=== PATIENT | male | born 1955 | race Two or more races ===

== ENCOUNTER 2024-07-11 17:09 | Inpatient (IN) | payer MEDICARE, OTHER ==
[~2024-07-11] VITALS: Ht 180.3 cm; Wt 88.0 kg
--- NOTE | 2024-07-11 19:43 | NUR ---
GPS RN ADMITTING NOTE ADMITTED A 68-Y/O, MALE, FROM [facility]. ADMITTED ON A 5150 HOLD FOR GD. PER HOLD, PT BELIEVES HE IS IN GOOD HEALTH, HE DOES NOT NEED MEDS, PT WITH POOR INSIGHT. PT UNABLE TO PROVIDE BASIC NEEDS, MEDICAL AND MENTAL WELL BEING. UPON FACE TO FACE EVALUATION, PATIENT IS NOTED BEING UNKEMPT, DISHEVELED, UNMOTIVATED TO SELF CARE. PT IS ALERT AND ORIENTED X3, DENIES SI/HI/AVH AT THIS TIME. SKIN ASSESSMENT NOTED WITH THICK, DISCOLORED TOENAILS AND MULTIPLE SCRATCHES ON TONI. LOWER EXT. WOUND CONSULT TRIGGERED. PT HAS NO BELONGINGS UPON ADMISSION. PATIENT ADVISED OF HIS HOLD AND PATIENT'S RIGHTS BOOKLET GIVEN. PT IS UNDER THE PSYCHIATRIC CARE OF DR. BARNETT. PT WAS SEEN AND EXAMINED BY HOSPITALIST RAFAEL DOWNS. SAFETY PRECAUTIONS IN PLACE. WILL CONTINUE TO MONITOR PATIENT Q15 MINUTES FOR SAFETY AND BEHAVIOR.
[2024-07-11] MEDS ORDERED: DOCU100C36 PO (20:28)
[2024-07-11] MEDS ORDERED: ZOLPIDEM TARTRATE 5 MG TABLET PO PRN ×2 (20:30)
[2024-07-11] MEDS ORDERED: ACETAMINOPHEN 325 MG TABLET PO PRN (20:30)
[2024-07-11] MEDS ORDERED: MAG HYDROX/AL HYDROX/SIMETH 30 ML UDC PO PRN (20:30)
[2024-07-11] MEDS ORDERED: INSU100V7 SQ (20:30)
[2024-07-11] MEDS ORDERED: MAGNESIUM HYDROXIDE 30 ML UDC PO PRN (20:30)
[2024-07-11] MEDS ORDERED: INSU100V39 SQ (20:33)
[2024-07-11] MEDS ORDERED: TAMS-12 PO (20:34)
[2024-07-11] MEDS ORDERED: OLAN5TAB3 PO (20:34)
[2024-07-11] MEDS ORDERED: ASPI-1420 PO (20:36)
[2024-07-11] MEDS ORDERED: EZET10TA16 PO (20:37)
[2024-07-11] MEDS ORDERED: ATOR40TA PO (20:37)
[2024-07-11] MEDS: BLOOD SUGAR DIAGNOSTIC 1 EACH STRIP IN ONE (20:44)
[2024-07-11] MEDS: LORAZEPAM 1 MG TABLET PO PRN (20:44)
[2024-07-11 21:00] VITALS: BP 153/84; TEMP 98; O2SAT 96
[2024-07-11] MEDS ORDERED: DEXTROSE 50%-WATER 50 ML DISP.SYRIN IV PRN (21:00)
--- NOTE | 2024-07-11 21:00 | NUR ---
GPS RN NOTE PATIENT C/O FEELING ANXIOUS. ATIVAN 1MG PO GIVEN ORDERED. POST ADMINISTRATION OF ATIVAN. PT IS ASLEEP AT THIS TIME.
[2024-07-11] MEDS: EZETIMIBE 10 MG TABLET PO SCH (21:35)
[2024-07-11] MEDS: BLOOD SUGAR DIAGNOSTIC 1 EACH STRIP IN SCH (21:38)
[2024-07-11] MEDS: INSULIN REGULAR, HUMAN 100 UNIT/ML 3 ML VIAL SQ PRN (21:44)
[2024-07-11] MEDS ORDERED: INSULIN LISPRO 100 UNIT SQ SCH (22:00)
[2024-07-12] MEDS: INSULIN GLARGINE, 100 UNIT/ML CARTRIDGE SQ SCH (00:08)
[2024-07-12 08:02] LABS: BASOPHILS % (AUTO) 0.5 % (0.0-2.0); EOSINOPHILS # (AUTO) 0.2 K/uL (0.0-0.7); EOSINOPHILS % (AUTO) 3.2 % (0.0-6.0); HEMATOCRIT 36 % (39-51); HEMOGLOBIN 11.9 g/dL (13.5-17.5); LYMPHOCYTES # (AUTO) 2.1 K/uL (0.8-4.8); LYMPHOCYTES % (AUTO) 33.8 % (20.0-44.0); MEAN CORPUSCULAR HEMOGLOBIN 27 PG (26.0-33.0); MEAN CORPUSCULAR HGB CONC 33 g/dl (31.0-36.0); MEAN CORPUSCULAR VOLUME 82 fL (80-96); MONOCYTES # (AUTO) 0.5 K/uL (0.1-1.30); MONOCYTES % (AUTO) 7.2 % (2.0-12.0); NEUTROPHILS # (AUTO) 3.5 K/uL (1.8-8.9); NEUTROPHILS % (AUTO) 55.3 % (43.0-81.0); PLATELET COUNT (AUTO) 232 K/uL (150-450); RED BLOOD CELL COUNT(AUTO) 4.33 MIL/uL (4.5-6.0); RED CELL DISTRIBUTION WIDTH 16.4 % (11.5-15.0); WHITE BLOOD COUNT (AUTO) 6.3 K/uL (4.3-11.0)
[2024-07-12 08:25] LABS: CALCIUM, SERUM 9.3 mg/dL (8.5-10.1); CREATININE 0.7 mg/dL (0.6-1.3); POTASSIUM 3.7 mmol/L (3.5-5.1)
[2024-07-12 08:29] VITALS: BP 151/91; TEMP 97.9; O2SAT 96
[2024-07-12] MEDS: DOCUSATE SODIUM 100 MG CAPSULE PO SCH (09:33)
[2024-07-12] MEDS: ATORVASTATIN 40 MG TABLET PO SCH (09:33)
[2024-07-12] MEDS: TAMSULOSIN 0.4 MG CAP.SR.24H PO SCH (09:33)
[2024-07-12] MEDS: ASPIRIN EC 81 MG TABLET.DR PO SCH (09:34)
[2024-07-12] MEDS: OLANZAPINE 2.5 MG TABLET PO SCH (16:38)
[2024-07-12 17:03] VITALS: BP 132/59; TEMP 98.7; O2SAT 98
[2024-07-13 08:00] VITALS: BP 125/81; TEMP 97.8; O2SAT 96
--- NOTE | 2024-07-13 09:55 | NUR ---
REGINE Initial Discharge Note: Pt currently resides at [address] [place] [address]; ([phone]). REGINE will contact pt's person to notify ([phone]) to discuss treatment/discharge plan. REGINE will work work with the MD, family, and treatment team to help coordinate appropriate discharge.
--- NOTE | 2024-07-13 09:56 | NUR ---
REGINE Clinical Note: Pt placed on a 5150 hold for GD. Per hold, pt has no insight into his mental illness. Pt stated that he does not need medications. Pt currently resides at [address] [place] [address]; ([phone]). REGINE will contact pt's person to notify ([phone]) to discuss treatment/discharge plan.
--- NOTE | 2024-07-13 13:39 | NUR ---
REGINE Family Contact: REGINE contacted pt's sister Jina ([phone]) and discussed pt's treatment/discharge plan. Sister stated that she is the DPOA and she will send those documents. She stated that pt is unable to take care of himself at home and will need placement. She would want him to go to nursing facility. REGINE gave options of nursing homes in: [place] [facility], [facility], and [facility]. She would want this technical report writer to send clinicals to [facility]. She stated that his apartment is invested with cockroaches. REGINE will file APS through [facility].
--- NOTE | 2024-07-13 13:55 | NUR ---
APS: REGINE filed for APS through [facility] for wellness check Intake #[id number]. REGINE placed a copy in the chart.
[2024-07-13 16:07] VITALS: BP 115/60; TEMP 97.8; O2SAT 100
[2024-07-13 20:48] VITALS: BP 153/81; TEMP 97.8; O2SAT 97
[2024-07-14 08:00] VITALS: BP 152/95; TEMP 97.8; O2SAT 96
[2024-07-14] MEDS: OLANZAPINE 2.5 MG TABLET PO SCH (10:00)
--- NOTE | 2024-07-14 10:21 | NUR ---
MEDICATION NOTE ZYPREXA 2.5MG GIVEN THIS AM. FROM PREVIOUS ORDER.
--- NOTE | 2024-07-14 11:30 | NUR ---
REGINE Note: Dr. Fox and SW spoke with pt regarding his placement and home environment, stated that sister Jina ([phone]) stated that his home is infested with roaches. He was agreeable of placement.
--- NOTE | 2024-07-14 11:35 | NUR ---
RN-NOTES PATIENT HAD A 14 DAY HOLD HEARING TODAY AND WAS UPHELD FOR GD.
[2024-07-14 16:00] VITALS: BP 142/78; TEMP 97.8; O2SAT 100
--- NOTE | 2024-07-14 19:30 | NUR ---
RN OPENING NOTE RECEIVED PT IN BED, SLEEPING. PT A/O X3, ABLE TO MAKE NEEDS KNOWN. ON ROOM AIR, TOLERATING WELL, WITH RESPIRATIONS EVEN AND UNLABORED, NO SOB. DENIES PAIN OR DISCOMFORT AT THIS TIME. DENIES S/I, H/I AT THIS TIME. SAFETY MEASURES IMPLEMENTED. WILL CONTINUE TO MONITOR PT FOR SAFETY, AND BEHAVIORAL CHANGES.
--- NOTE | 2024-07-14 20:00 | NUR ---
RN NOTE PT'S BP: 170/87, P: 64.
[2024-07-14] MEDS: OLANZAPINE 5 MG TABLET PO SCH (21:51)
--- NOTE | 2024-07-14 22:00 | NUR ---
RN NOTE PT'S BP RETAKEN, BP: 150/74, P: 69.
--- NOTE | 2024-07-15 06:45 | NUR ---
RN CLOSING NOTE LEFT PT IN BED, SLEEPING. PT A/O X2, ABLE TO MAKE NEEDS KNOWN. ON ROOM AIR, TOLERATING WELL, WITH RESPIRATIONS EVEN AND UNLABORED, NO SOB NOTED. DENIES PAIN OR DISCOMFORT AT THIS TIME. SAFETY MEASURES IMPLEMENTED. ALL NEEDS ATTENDED, ALL DUE MEDS GIVEN. WILL ENDORSE PT TO AM SHIFT FOR CONTINUITY OF CARE.
--- NOTE | 2024-07-15 08:09 | NUR ---
REGINE Note: REGINE received pt's wish list from sister Jina ([phone]) and this radio news writer placed it in the chart.
[2024-07-15 09:22] VITALS: BP 151/83; TEMP 97.7; O2SAT 94
--- NOTE | 2024-07-15 09:36 | NUR ---
WOUND CARE CONSULT: PT PRESENTS WITH VERY LONG CURLING TOENAILS AND EXCORIATIONS TO LEFT LOWER LEG, PRESENT ON ADMISSION. DR VITAL CALLED FOR DPM CONSULT. IN AGREEMENT WITH PLAN OF CARE.
--- NOTE | 2024-07-15 10:12 | NUR ---
DPOA: Sister Jina ([phone]) sent DPOA document she is the financial DPOA. SW placed it in the chart.
--- NOTE | 2024-07-15 11:39 | NUR ---
Referral: ERGINE sent clinicals to Karley from [facility] ([phone]) for placement. REGINE sent H & P, progress notes, and medication list.
--- NOTE | 2024-07-15 13:00 | NUR ---
NURSE NOTE: BS AT 235. 4 UNITS OF INSULIN ADMIN TO R ARM ORDERED. WILL CONT TO MONITOR.
--- NOTE | 2024-07-15 13:06 | NUR ---
SNF Contact: REGINE received a call from Karley from [facility] ([phone]) who stated pt is accepted.
--- NOTE | 2024-07-15 15:39 | NUR ---
SNF Referral: Per sister Jina's request, REGINE sent clinicals to [facility] ([phone]) for placement. SW sent clinicals to H & P, progress notes, and medications list.
[2024-07-15 16:00] VITALS: BP_SYST 114; BP_SYST 163; BP_DIAS 66; BP_DIAS 93; TEMP 98; TEMP 98.2; O2SAT 98
[2024-07-15 20:00] VITALS: BP 175/87; TEMP 98.1; O2SAT 98
[2024-07-15] MEDS: CLONIDINE HCL 0.1 MG TABLET PO PRN (21:16)
--- NOTE | 2024-07-15 21:16 | NUR ---
ELEVATED BP SBP 175 Patient denies headache, no c/o dizziness. PRN Clonidine given, will reassess BP.
--- NOTE | 2024-07-15 21:28 | NUR ---
ACCU CHECK FSBG 183mg/dl Given insulin per dose parameters, co-signed by JOANIE Sanders.
[2024-07-16 05:31] VITALS: BP 104/86; O2SAT 97
--- NOTE | 2024-07-16 06:18 | NUR ---
END OF SHIFT REPORT Patient with adequate sleep, cooperative. Compliant with medication, BP improved with Clonidine, Current this morning BP 104/86. Ambulatory, standby assist. Good appetite. Cont on safety protocol. Cont on GPS hospitalization as planned. Will endorse to oncoming RN.
[2024-07-16 08:21] VITALS: BP 190/131; TEMP 98.9; O2SAT 100
[2024-07-16 09:18] VITALS: BP 151/83
[2024-07-16] MEDS: NIFEdipine XL (30MG) 30 MG TAB PO SCH (10:37)
[2024-07-16 16:18] VITALS: BP 124/77; TEMP 97.8; O2SAT 95
[2024-07-16] MEDS: LORAZEPAM 1 MG TABLET PO PRN (16:24)
--- NOTE | 2024-07-16 16:27 | NUR ---
RN-NOTES NOTED PATIENT MUMBLING AND TALKING TO SELF WITH LOUD VOICE.. REDIRECTED AND ATIVAN 1MG P.O GIVEN PRN ORDER. WILL CONT. MONITORING FOR SAFETY AND BEHAVIOR.
--- NOTE | 2024-07-16 17:30 | NUR ---
RN-NOTES PATIENT EATING DINNER IN THE DAY ROOM CALM,NO ACUTE DISTRESS NOTED.
--- NOTE | 2024-07-16 18:49 | NUR ---
RN-NOTES PATIENT IS VISIBLE IN THE UNIT A/O X2 GUARDED,NOTED WITH EPISODE OF TALKING ,MUMBLING TO SELF AND SITTING ON THE FLOOR.REDIRECTED PATIENT. COMPLIANT WITH MEDICATIONS. ENCOURAGED TO PARTICIPATES IN THE GROUP ACTIVITY, PATIENT ATTENDED GROUP NO PARTICIPATIONS.AMBULATORY STEADY GAIT. ALL NEEDS ATTENDED AND ANTICIPATED. WILL ENDORSE TO THE INCOMING NURSE FOR CONTINUITY OF CARE.
[2024-07-16 20:00] VITALS: BP 127/83; TEMP 97.3; O2SAT 98
--- NOTE | 2024-07-17 06:34 | NUR ---
RN NOTES: PT. RESTING IN BED , 9 HOURS OF SLEEP, EASILY AGITATED, PARANOID DISORGNIZED NEEDS FREQUENTLY REDIRECTIONS, REDIRECTABLE , ALL NEEDS ATTENDED AND ANTICIPATED,NO ACUTE DISTRESS NOTED , WILL CONTINUTY WITH CARE .
[2024-07-17 08:00] VITALS: BP 126/77; TEMP 98; O2SAT 98
--- NOTE | 2024-07-17 13:51 | NUR ---
SNF Contact: SW spoke with intake from [facility] ([phone]) and denied pt due to not being able to care for him at the facility.
--- NOTE | 2024-07-17 13:52 | NUR ---
DPOA: REGINE contacted Sister Jina ([phone]) and stated that pt accepted at [facility].
[2024-07-17 16:00] VITALS: BP 112/67; TEMP 97.5; O2SAT 96
[2024-07-18 08:00] VITALS: BP 128/83; TEMP 97.9; O2SAT 100
[2024-07-18 16:00] VITALS: BP 123/80; TEMP 98; O2SAT 100
[2024-07-18 20:51] VITALS: BP 115/63; TEMP 98.2; O2SAT 97
--- NOTE | 2024-07-18 21:18 | NUR ---
RN NOTES:PT. BLOOD SUGAR IS 140 MG/DL ,PT. RFUSED TO TAKE INSULLIN REGULAR 2 UNITS OF CONVERGE , PER PT. STATES MY BS IS 140 ,BUT PT. AGREE TO TAKE LANTUS 8 UNITS. WILL CONTINUE WITH CARE.
--- NOTE | 2024-07-19 06:16 | NUR ---
RN NOTES: PT. RESTING IN BED , 8 HOURS OF SLEEP, EASILY AGITATED, PARANOID DISORGNIZED NEEDS FREQUENTLY REDIRECTIONS, REDIRECTABLE , ALL NEEDS ATTENDED AND ANTICIPATED,NO ACUTE DISTRESS NOTED , WILL CONTINUTY WITH CARE .
[2024-07-19 08:00] VITALS: BP 147/84; TEMP 97.5; O2SAT 97
[2024-07-19 16:00] VITALS: BP 135/75; TEMP 98; O2SAT 98
[2024-07-19 20:22] VITALS: BP 142/78; TEMP 98; O2SAT 98
[2024-07-20 08:00] VITALS: BP 142/79; TEMP 98.3; O2SAT 98
[2024-07-20 12:00] VITALS: TEMP 98.3
[2024-07-20 16:00] VITALS: BP 131/78; TEMP 98.6; O2SAT 98
[2024-07-20 20:38] VITALS: BP 134/79; TEMP 98.4; O2SAT 96
[2024-07-21 08:00] VITALS: BP 149/79; TEMP 97.8; O2SAT 99
[2024-07-21] MEDS: BENZTROPINE MESYLATE (1 MG) 1 MG TABLET PO SCH (10:38)
--- NOTE | 2024-07-21 10:41 | NUR ---
pt. up to nurse"s station reporting twitching of his head just started,notified dr. [email or web address].[email or web address] started.
--- NOTE | 2024-07-21 15:30 | NUR ---
resting in bed twitching seems to be better.
[2024-07-21 16:00] VITALS: BP 134/76; TEMP 97.8; O2SAT 98
--- NOTE | 2024-07-21 19:38 | NUR ---
RN OPENING NOTE RECEIVED PATIENT AWAKE SITTING ON BED. ON ROOM AIR, TOLERATING WELL, DENIES PAIN OR DISCOMFORT AT THIS TIME. DENIES S/I, H/I AT THIS TIME. SAFETY MEASURES IMPLEMENTED. WILL CONTINUE TO MONITOR PT FOR SAFETY, AND BEHAVIORAL CHANGES.
[2024-07-21 20:15] VITALS: BP 125/79; TEMP 97.8; O2SAT 99
[2024-07-22 08:00] VITALS: BP 157/106; TEMP 97; O2SAT 96
--- NOTE | 2024-07-22 08:54 | NUR ---
REGINE EARLY DISCHARGE ENTRY 07/23/2024: Patient will be discharged to [facility] located at [address] [place] [id number]; ([phone]) via ambulance. Karley martin from [facility] ([phone]) accepted pt and is welcoming pt today. Pts Sister Jina STREET ([phone] is aware and agreeable. Pt appears to be alert and oriented x1. Pt denies visual/auditory hallucinations. Pt denies denies suicidal or homicidal ideation. Patient will continue to follow-up with (Psychiatrist) Dr. Martinez [address] [address] [facility] [address], [place] [address]; ([phone]) and (Technical Internship) Dr. Kim [address] [facility] [address], [place] [address]; ([phone]).
[2024-07-22 16:00] VITALS: BP 120/82; TEMP 98; O2SAT 99
[2024-07-22 20:00] VITALS: BP 124/90; TEMP 98.1; O2SAT 99
[2024-07-23 08:00] VITALS: BP 100/65; TEMP 98.6; O2SAT 98
[2024-07-23 08:16] VITALS: BP 100/67
--- NOTE | 2024-07-23 09:57 | NUR ---
TIFFANIE RECEIVED T.O ORDER FROM DR. BARNETT TO DISCONTINUE HOLD, DISCHARGE PATIENT AND TO CONTINUE ALL MEDICATIONS INCLUDING PRN'S. NOTED AND CARRIED OUT.
--- NOTE | 2024-07-23 13:10 | NUR ---
RN-DISCHARGE NOTES PATIENT WAS DISCHARGE TO [facility]. REPORT WAS GIVEN TO [facility] WELDING MACHINE OPERATOR G[employer] ARC. BARBARA ARMENTA MEDICALLY CLEARED PATIENT FOR DISCHARGE. PATIENT LEFT THE UNIT AWAKE A/O X1-2 CALM,NO ACUTE DISTRESS NOTED. PATIENT REFUSED SKIN ASSESSMENT PRIOR TO DISCHARGE. PATIENT STATED" I HAVE NO PROBLEM WITH MY SKIN, IT'S FINE".PATIENT DID NOT VERBALIZE SI/HI,DENIES VISUAL/AUDITORY HALLUCINATIONS DURING FACE TO FACE INTERVIEW. PATIENT WAS TREATING AND PUMPING SUPERVISOR BY AMBULANCE VIA GURNEY WITH TWO STAFF ASSIST. ALL BELONGINGS WAS GIVEN BACK TO THE PATIENT.
== END 2024-07-23 13:10 | DRG 885 ==
LOC: GPS 19:37
PROVIDERS: ADMIT Psychiatry & Neurology Psychiatry; ATTEND Nurse Practitioner Acute Care
DX: F25.0 Schizoaffective disorder, bipolar type (principal); E11.65 Type 2 diabetes mellitus with hyperglycemia; F03.918 Unspecified dementia, unspecified severity, with other behavioral disturbance; Z59.00 Homelessness unspecified; F29 Unspecified psychosis not due to a substance or known physiological condition; I25.10 Atherosclerotic heart disease of native coronary artery without angina pectoris; N40.0 Benign prostatic hyperplasia without lower urinary tract symptoms; Z73.6 Limitation of activities due to disability; Z91.199 Patient's noncompliance with other medical treatment and regimen due to unspecified reason; Z91.148 Patient's other noncompliance with medication regimen for other reason; F39 Unspecified mood [affective] disorder; E11.42 Type 2 diabetes mellitus with diabetic polyneuropathy; E66.3 Overweight; Z68.27 Body mass index [BMI] 27.0-27.9, adult; F19.11 Other psychoactive substance abuse, in remission; I10 Essential (primary) hypertension; E78.5 Hyperlipidemia, unspecified; L60.3 Nail dystrophy; Z88.0 Allergy status to penicillin; Z79.82 Long term (current) use of aspirin; Z79.4 Long term (current) use of insulin; Z79.899 Other long term (current) drug therapy
CPT/HCPCS: 36415; 80048-TC; 80061-TC; 82962-TC; 85025-TC; 87081-TC; 97116-TC; 97530-TC; J1815